=== PATIENT | female | born 1970 | race Caucasian/White ===

== ENCOUNTER 2021-02-26 19:15 | Emergency (ER) | payer MEDICAID ==
[~2021-02-26] VITALS: Ht 165.1 cm; Wt 119.4 kg
[2021-02-26] MEDS ORDERED: LORA-269 PO (20:47)
[2021-02-26] MEDS ORDERED: ONDA4TAB6 PO (20:47)
[2021-02-26 21:03] VITALS: BP 186/118
== END 2021-02-26 20:54 | disposition home or self-care (01) ==
LOC: ER 19:16
DX: Z02.89 Encounter for other administrative examinations (principal); F10.10 Alcohol abuse, uncomplicated; I10 Essential (primary) hypertension; Z72.89 Other problems related to lifestyle; Z79.899 Other long term (current) drug therapy; Y90.9 Presence of alcohol in blood, level not specified
CPT/HCPCS: 99283

== ENCOUNTER 2022-09-26 15:26 | Emergency (ER) | payer MEDICAID ==
[~2022-09-26] VITALS: Ht 165.1 cm; Wt 88.2 kg
[~2022-09-26 15:26] MED LIST: LORA-269 PO; ONDA4TAB6 PO
[2022-09-26 15:43] LABS: BASOPHILS # (AUTO) 0.1 X10'3 (0-0.2); BASOPHILS % (AUTO) 0.8 % (0-1); EOSINOPHILS # (AUTO) 0.2 X10'3 (0-0.9); EOSINOPHILS % (AUTO) 2.1 % (0-6); HEMATOCRIT 47.1 % (35.0-45.0); HEMOGLOBIN 15.3 g/dl (12.0-16.0); LYMPHOCYTES # (AUTO) 3.2 X10'3 (1.1-4.8); LYMPHOCYTES % (AUTO) 29.3 % (21-51); MEAN CORPUSCULAR HEMOGLOBIN 28.2 PG (27.0-31.0); MEAN CORPUSCULAR HGB CONC 32.5 g/dL (33.0-36.5); MEAN PLATELET VOLUME 8.4 FL (7.4-10.4); MONOCYTES # (AUTO) 1.1 X10'3 (0-0.9); MONOCYTES % (AUTO) 10.1 % (2-12); NEUTROPHILS # (AUTO) 6.4 X10'3 (1.8-7.7); NEUTROPHILS % (AUTO) 57.7 % (42-75); PLATELET COUNT 467 X10'3 (140-440); RED BLOOD COUNT 5.41 X10'6 (4.20-5.60); WHITE BLOOD COUNT 11.1 X10'3 (4.5-11.0)
[2022-09-26] MEDS ORDERED: normal saline 1000ML IV soln IVB ONE ×2 (16:00→17:30)
[2022-09-26 16:02] LABS: ALANINE AMINOTRANSFERASE 24 U/L (12-78); ALKALINE PHOSPHATASE 69 IU/L (46-116); ANION GAP 18 (8-16); ASPARTATE AMINO TRANSFERASE 15 U/L (10-37); BILIRUBIN,TOTAL 0.3 MG/DL (0.1-1.0); BLOOD UREA NITROGEN 16 MG/DL (7-18); CHLORIDE 99 MMOL/L (99-107); CREATININE 1.07 MG/DL (0.40-0.90); GLUCOSE 106 MG/DL (70-104); POTASSIUM 3.8 MMOL/L (3.5-5.1); SODIUM 137 MMOL/L (135-145); TOTAL PROTEIN 8.2 G/DL (6.4-8.2); eGFR 54 ML/MIN
[2022-09-26 16:08] LABS: MAGNESIUM 2.4 MG/DL (1.5-2.4)
[2022-09-26 16:15] LABS: CALCIUM 9.6 MG/DL (8.5-10.1)
[2022-09-26] MEDS ORDERED: metoprolol tartrate 50mg tablet PO ONE (17:30)
[2022-09-26] MEDS ORDERED: metoprolol tartrate 25mg tablet PO ONE (17:43)
--- NOTE | 2022-09-26 17:55 | NUR ---
PT REFUSES TO TAKE METOPROLOL UNTIL SHE TALKS WITH
--- NOTE | 2022-09-26 18:02 | NUR ---
PT AGREED TO TAKE METOPRLOL AND REQUESTS TO SPEAK WITH RAKESH. RN WILL NOTIFY RAKESH OF PT REQ
[2022-09-26 18:36] VITALS: BP 173/108
== END 2022-09-26 18:38 | disposition home or self-care (01) ==
LOC: ER 15:26
DX: R00.0 Tachycardia, unspecified (principal); I10 Essential (primary) hypertension
CPT/HCPCS: 36415; 80053; 83735; 83880; 84484; 85025; 85379; 93005; 96360; 96361; 99284; J7030